=== PATIENT | female | born 1990 | race Caucasian/White ===

== ENCOUNTER 2021-08-30 10:29 | Inpatient (IN) ==
[~2021-08-30 10:29] MED LIST: *HR* Nalbuphine 10 MG/ML AMPUL IV PRN; Azithromycin 500 MG in 0.9 % Sodium Chloride 250 ML IVPB PRN; Famotidine 20 MG/2 ML VIAL IVP PRN; Metoclopramide 10 MG/2 ML VIAL IVP PRN; Naloxone 0.4 MG/ML INJ IVP PRN; Ondansetron 4 MG/2 ML VIAL IVP PRN
[2021-08-30] MEDS: Ringers Solution, Lactated 1,000 ML IVC SCH ×2 (11:15→12:20)
[2021-08-30] MEDS ORDERED: Ropivacaine/PF 0.2% 20 ML VIAL ONE (11:21)
[2021-08-30] MEDS ORDERED: *HR* FentaNYL (PF) 100 MCG/2 ML VIAL ONE (11:21)
[2021-08-30] MEDS ORDERED: Epidural Premix (fent/bupiv) 110 ML EP ONE (11:25)
[2021-08-30 11:29] LABS: Basophils % 0.3 %; Eosinophils % 0.2 %; Hematocrit 33.1 % (35.3-44.9); Hemoglobin 11.1 g/dL (11.5-15.4); Immature Granulocytes % 0.6 % (0-4); Lymphocytes # 1.6 K/mcL (0.6-4.6); Lymphocytes % 10.1 %; Mean Corpuscular HGB Conc 33.5 g/dL (31.6-35.5); Mean Corpuscular Hemoglobin 29.7 pg (28.0-33.3); Mean Corpuscular Volume 88.5 fL (83.0-100.0); Mean Platelet Volume 10.9 fL (9.4-12.4); Monocytes % 6.4 %; Neutrophils # 12.9 K/mcL (1.6-8.9); Platelet Count 278 K/mcL (140-400); Red Blood Count 3.74 M/mcL (3.82-4.97); Red Cell Distribution Width 13.5 % (11.5-14.5); Segmented Neutrophils % 82.4 %; White Blood Count 15.6 K/mcL (4.3-11.1)
[2021-08-30 11:38] LABS: Amphetamine Screen,Urine Negative ng/mL (Cutoff=1000); Barbiturate Screen,Urine Negative ng/mL (Cutoff=200); Benzodiazepines Screen,Urine Negative ng/mL (Cutoff=200); Cannabinoid Screen,Urine Negative ng/mL (Cutoff = 50); Cocaine Screen,Urine Negative ng/mL (Cutoff= 300); Opiate Screen,Urine Negative ng/mL (Cutoff=300); Phencyclidine Screen,Urine Negative ng/mL (Cutoff=25)
[2021-08-30] MEDS ORDERED: EPHEDrine 50 MG/ML VIAL IVP PRN (11:47)
[2021-08-30] MEDS ORDERED: Epidural Premix (fent/bupiv) 110 ML EP SCH (12:00)
[2021-08-30 12:03] LABS: Influenza A PCR Negative (Negative); Influenza B PCR Negative (Negative); Resp. Syncytial Virus PCR Negative (Negative); SARS-CoV-2 by PCR (In House) Negative (Negative)
[2021-08-30] MEDS ORDERED: Oxytocin 20 units/ LR 1000 mL 20 UNIT/1,000 ML BAG IVC ONE ×2 (14:08→16:54)
[2021-08-30] MEDS ORDERED: Lanolin 7 G OINT...G. TP PRN (16:54)
[2021-08-30] MEDS ORDERED: Benzocaine/Menthol 56 GM AEROSOL SPRAY TP PRN (16:54)
[2021-08-30] MEDS ORDERED: Oxytocin 20 units/ LR 1000 mL 20 UNIT/1,000 ML BAG IVC SCH (16:54)
[2021-08-30] MEDS ORDERED: Rho Immune Globulin 1,500 UNIT SYRINGE IM PRN (16:54)
[2021-08-30] MEDS ORDERED: Ondansetron ODT 4 MG TAB.RAPDIS SL PRN (16:54)
[2021-08-30] MEDS: Ibuprofen 600 MG TABLET PO SCH (18:28)
[2021-08-30] MEDS: Acetaminophen 325 MG TABLET PO SCH (19:38)
[2021-08-30 20:46] VITALS: TEMP 97.8; O2SAT 99
[2021-08-31] MEDS: Ibuprofen 600 MG TABLET PO SCH ×2 (03:11→10:20)
[2021-08-31] MEDS: Acetaminophen 325 MG TABLET PO SCH ×3 (03:11→10:16)
[2021-08-31 07:36] VITALS: BP 99/60; PULSE 70
[2021-08-31] MEDS ORDERED: Prenatal Vit/FA 1 EACH TABLET PO SCH (09:00)
== END 2021-08-31 16:31 | disposition home or self-care (01) | DRG 807 ==
LOC: 1NENULAB → 1NENUOBS 17:30
PROVIDERS: ADMIT Student in an Organized Health Care Education/Training Program; ATTEND Advanced Practice Midwife